=== PATIENT | male | born 1980 | race Two or more races ===

== ENCOUNTER 2021-12-23 17:48 | Emergency (ER) | payer OTHER ==
[~2021-12-23] VITALS: Ht 170.2 cm; Wt 108.9 kg
[2021-12-23] MEDS ORDERED: GLUMETZA500 MG (17:58)
== END 2021-12-23 23:04 | disposition home or self-care (01) ==
LOC: ER 17:48
DX: F45.8 Other somatoform disorders (principal); R53.83 Other fatigue; F41.9 Anxiety disorder, unspecified; R53.1 Weakness